=== PATIENT | male | born 1975 | race African-American/Black ===

== ENCOUNTER 2020-03-02 22:17 | Emergency (ER) | payer OTHER ==
[2020-03-02] MEDS ORDERED: Diphtheria,Pertussis(Acell),Tetanus Vaccine 0.5 ML Syringe IM ONE (22:38)
[2020-03-02] MEDS ORDERED: Bacitracin/Neomycin/Polymyxin B Oint 0.9 GM U/D Packet ONE (22:48)
[2020-03-02] MEDS ORDERED: Bacitracin Oint 1 GM U/D Packet TOP ONE (22:50)
--- NOTE | 2020-03-02 22:59 | EDM.PDOC ---
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 Finger-Thumb Pain Score (Numeric/FACES): 10 - Related Data Allergies Allergy/AdvReac Type Severity Reaction Status Date / Time No Known Drug Allergies Allergy Other Verified 03/02/20 22:26 Home Meds: Home Meds amLODIPine [Norvasc] 5 mg PO DAILY 03/02/20 [History] Past Medical History - Past Health History Medical/Surgical History: Denies Medical/Surgical History Social & Family History - Tobacco Use Tobacco Use Status *Q: Never Tobacco User - Recreational Drug Use Recreational Drug Use: No Review of Systems - Review of Systems Review Of Systems: See Below Musculoskeletal: Reports: Other (right thumb crush injury) ED EXAM, GENERAL - Physical Exam Exam: See Below Extremities: Other (Right thumb with crush injury Increased swelling and ecchymosis 5 cm laceration Nail intact) ED TRAUMA EXTREMITY PROCEDURES - Laceration/Wound Repair Right Digit - 1st (Thumb) Lac/Wound Length In cm: 5 Appearance: Subcutaneous Distal NVT: Neuro & Vascular Intact, No Tendon Injury Anesthetic Type: Local Local Anesthesia - Lidocaine (Xylocaine): 1% Plain Local Anesthetic Volume: Other (10 cc) Skin Prep: Chlorhexidine (Hibiciens), Saline Exploration/Debridement/Repair: Wound Explored Closed With: Sutures Suture Size: 4-0 # of Sutures: 6 Suture Type: Nylon Sterile Dressing Applied: Nurse Tetanus Status Addressed: Yes Complications: No Course - Orders/Labs/Meds Orders: Active Orders 24 hr Category Date Time Status Vaccines to be Administered [RC] PER UNIT ROUTINE Care 03/02/20 22:38 Active Fingers Thumb Rt F5 [CR] Stat Exams 03/02/20 22:25 Taken Meds: Medications Discontinued Medications Generic Name Dose Route Start Last Admin Trade Name Freq PRN Reason Stop Dose Admin Diphtheria/Tetanus/Acell Pertussis 0.5 ml 03/02/20 22:38 Boostrix IM 03/02/20 22:39 .ONCE ONE Lidocaine HCl Confirm 03/02/20 22:35 Xylocaine-Mpf 1% Administered 03/02/20 22:36 Dose 5 ml .ROUTE .STK-MED ONE Lidocaine HCl 5 ml 03/02/20 22:38 Xylocaine-Mpf 1% INJECT 03/02/20 22:39 ONETIME ONE Lidocaine HCl 5 ml 03/02/20 22:44 Xylocaine-Mpf 1% INJECT 03/02/20 22:45 ONETIME ONE Neomycin/Polymyxin/Bacitracin Confirm 03/02/20 22:48 Triple Antibiotic Oint Administered 03/02/20 22:49 Dose 1 each .ROUTE .STK-MED ONE - Re-Assessments/Exams Free Text/Narrative Re-Assessment/Exam: 03/02/20 22:57 Pt stable in ER No fracture on xray Tdap given in ER Departure - Departure Time of Disposition: 23:00 Disposition: Home, Self-Care 01 Clinical Impression: Crush injury Thumb laceration Qualifiers: Encounter type: initial encounter Damage to nail status: without damage Foreign body presence: without foreign body Laterality: right Qualified Code(s): S61.011A - Laceration without foreign body of right thumb without damage to nail, initial encounter - Discharge Information *PRESCRIPTION DRUG MONITORING PROGRAM REVIEWED*: Not Applicable *COPY OF PRESCRIPTION DRUG MONITORING REPORT IN PATIENT YOEL: Not Applicable Instructions: Laceration Care, Adult, Sutures, Domonique, or Adhesive Wound Closure, [id number] Referrals: PCP,None [Primary Care Provider] - Additional Instructions: Keep wound clean Sutures out in 10 days Follow up in clinic Wear splint - My Orders Last 24 Hours: My Active Orders 03/02/20 22:25 Fingers Thumb Rt F5 [CR] Stat 03/02/20 22:38 Vaccines to be Administered [RC] PER UNIT ROUTINE - Assessment/Plan Last 24 Hours: My Active Orders 03/02/20 22:25 Fingers Thumb Rt F5 [CR] Stat 03/02/20 22:38 Vaccines to be Administered [RC] PER UNIT ROUTINE
== END 2020-03-02 23:10 | disposition home or self-care (01) ==
LOC: LL.ED 22:17
DX: S67.01XA Crushing injury of right thumb, initial encounter (principal); Z23 Encounter for immunization; W23.0XXA Caught, crushed, jammed, or pinched between moving objects, initial encounter
CPT/HCPCS: 12002; 73140; 90471; 90715; 99283; J2001; 99282